=== PATIENT | female | born 2000 | race Caucasian/White ===

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

== ENCOUNTER 2019-02-14 16:33 | Emergency (ER) | payer OTHER ==
[~2019-02-14] VITALS: Ht 154.9 cm; Wt 62.7 kg
[2019-02-14 16:33] VITALS: BP 120/80
[~2019-02-14 16:33] MED LIST: LOTRCRE TOP
[2019-02-14] MEDS ORDERED: TOPA1TAB PO (16:39)
[2019-02-14] MEDS ORDERED: LIDOCAINE 1% MDV 20ML VIAL SC ONE (17:15)
[2019-02-14] MEDS ORDERED: BACT800T5 PO (17:40)
== END 2019-02-14 17:50 | disposition home or self-care (01) ==
LOC: M ED 16:33
DX: L05.01 Pilonidal cyst with abscess (principal); Z91.048 Other nonmedicinal substance allergy status

== ENCOUNTER 2019-02-16 19:08 | Emergency (ER) | payer OTHER ==
[~2019-02-16] VITALS: Ht 154.9 cm; Wt 61.4 kg
[~2019-02-16 19:08] MED LIST changes: +BACT800T5 PO; +TOPA1TAB PO
[2019-02-16 20:31] VITALS: BP 120/72
== END 2019-02-16 20:32 | disposition home or self-care (01) ==
LOC: M ED 19:08
DX: Z48.817 Encounter for surgical aftercare following surgery on the skin and subcutaneous tissue (principal); L05.01 Pilonidal cyst with abscess; Z88.3 Allergy status to other anti-infective agents; Z91.048 Other nonmedicinal substance allergy status; Z79.899 Other long term (current) drug therapy

== ENCOUNTER 2020-09-29 21:28 | Emergency (ER) | payer OTHER, SELFPAY ==
[~2020-09-29] VITALS: Ht 154.9 cm; Wt 69.0 kg
[2020-09-29] MEDS ORDERED: BACT800T5 PO (23:02)
[2020-09-29] MEDS ORDERED: BACTRIM 160MG/800MG DS TAB PO ONE (23:25)
[2020-09-29 23:32] VITALS: BP 128/85
[2020-09-30] MEDS ORDERED: ACET1TAB55 PO (19:23)
== END 2020-09-29 23:33 | disposition home or self-care (01) ==
LOC: M ED 21:28
DX: L05.01 Pilonidal cyst with abscess (principal); G43.909 Migraine, unspecified, not intractable, without status migrainosus; Z91.048 Other nonmedicinal substance allergy status; Z88.8 Allergy status to other drugs, medicaments and biological substances

== ENCOUNTER 2020-09-30 19:08 | Emergency (ER) | payer OTHER ==
[~2020-09-30] VITALS: Ht 154.9 cm; Wt 67.4 kg
[2020-09-30] MEDS ORDERED: ACET1TAB55 PO (19:23)
[2020-09-30] MEDS ORDERED: LIDOCAINE 2% W/EPINEPHRINE 20ML VIAL **PRES FREE INJ ONE (20:15)
[2020-09-30 20:38] LABS: BASO # 0.1 10^3/uL (0.0-0.2); BASO % 0.5 % (0.0-1.0); EOS % 0.3 % (0.0-3.0); HEMATOCRIT 41.4 % (36.0-47.0); HEMOGLOBIN 13.7 g/dl (12.0-15.5); LYMPH # 1.3 10^3/uL (1.5-5.0); LYMPH % 12.6 % (24.0-44.0); MEAN CORPUSCULAR HEMOGLOBIN 30.4 pg (27.0-33.0); MEAN CORPUSCULAR HGB CONC 33.1 g/dl (32.0-36.5); MONO # 1.2 10^3/uL (0.0-0.8); MONO % 11.8 % (2.0-8.0); NEUTROPHILS # 7.8 10^3/uL (1.5-8.5); NEUTROPHILS % 74.3 % (36.0-66.0); PLATELET COUNT, AUTOMATED 168 10^3/uL (150-450); WHITE BLOOD COUNT 10.5 10^3/uL (4.0-10.0)
[2020-09-30] MEDS ORDERED: BACTRIM 160MG/800MG DS TAB PO ONE (21:40)
[2020-09-30 21:44] VITALS: BP 135/76
== END 2020-09-30 21:49 | disposition home or self-care (01) ==
LOC: M ED 19:08
DX: L05.01 Pilonidal cyst with abscess (principal); G43.909 Migraine, unspecified, not intractable, without status migrainosus; Z88.8 Allergy status to other drugs, medicaments and biological substances; Z91.048 Other nonmedicinal substance allergy status

== ENCOUNTER → 2021-01-05 | Outpatient (CLI) | payer BC ==
[~2021-01-05] MED LIST changes: +ACET1TAB55 PO
[2021-01-05 13:53] LABS: BASO # 0.1 10^3/uL (0.0-0.2); BASO % 0.5 % (0.0-1.0); EOS # 0.2 10^3/uL (0.0-0.5); EOS % 2.3 % (0.0-3.0); HEMATOCRIT 40.1 % (36.0-47.0); HEMOGLOBIN 13.7 g/dl (12.0-15.5); LYMPH # 1.8 10^3/uL (1.5-5.0); LYMPH % 17.2 % (24.0-44.0); MEAN CORPUSCULAR HEMOGLOBIN 31.3 pg (27.0-33.0); MEAN CORPUSCULAR HGB CONC 34.2 g/dl (32.0-36.5); MEAN CORPUSCULAR VOLUME 91.6 fl (80.0-96.0); MONO # 0.6 10^3/uL (0.0-0.8); MONO % 6.3 % (2.0-8.0); NEUTROPHILS # 7.5 10^3/uL (1.5-8.5); NEUTROPHILS % 73.4 % (36.0-66.0); PLATELET COUNT, AUTOMATED 208 10^3/uL (150-450); RED BLOOD COUNT 4.38 10^6/uL (4.00-5.40); WHITE BLOOD COUNT 10.2 10^3/uL (4.0-10.0)
[2021-01-05 15:04] LABS: HEPATITIS C VIRUS ABY INDEX < 0.0 INDEX (<0.8); HIV 1&2 SCREEN CENTAUR NEGATIVE (NEGATIVE)
[2021-01-05 15:37] LABS: GC DNA AMPLIFICATION NEGATIVE (NEGATIVE)
== END ==
LOC: M PLALAB 10:15
PROVIDERS: ATTEND Obstetrics & Gynecology
DX: Z34.91 Encounter for supervision of normal pregnancy, unspecified, first trimester (principal)

== ENCOUNTER → 2021-02-02 | Outpatient (CLI) | payer BC | LOC: M PLAIMG 08:54 | PROVIDERS: ATTEND Specialist | DX: Z34.82 Encounter for supervision of other normal pregnancy, second trimester (principal) ==

== ENCOUNTER → 2021-03-01 | Outpatient (CLI) | payer BC ==
--- NOTE | 2021-03-01 11:15 | REP ---
INDICATION: ANATOMY. COMPARISON: None. TECHNIQUE: Real-time sonographic evaluation of the gravid uterus performed. FINDINGS: Estimated gestational age is19 weeks 5 days, EDC 07/21/2021. Today's measurements indicate appropriate growth. Presentation: Variable Placenta anterior, grade 1, without evidence of placenta previa. heart rate is recorded at 158 beats per minute. Amniotic fluid is subjectively normal. Closed cervical length is measured at 4.5 cm. Biometry chart: BPD: 47 mm, 20 weeks 1 days, 62nd percentile. HC: 178 mm, 20 weeks 2 days, 67th percentile AC: 142 mm, 19 weeks 4 days, 47th percentile Femur length: 31 mm, 19 weeks 3 days, 43rd percentile HC to AC ratio: 1.26, normal range 1.06-1.25. Estimated weight: 302g, 39th percentile. anatomy: Cranium: Grossly normal Lateral Ventricles/Choroid Plexus: Grossly normal Posterior Fossa/Cerebellum: Grossly normal Nose/lips/profile: Grossly normal Four chamber heart: Grossly normal Right ventricular outflow tract: Grossly normal Left ventricular outflow tract: Grossly normal Left-sided stomach: Grossly normal Kidneys: Grossly normal Bladder: Grossly normal Cord Insertion: Grossly normal 3 vessel cord: Grossly normal Spine: Grossly normal IMPRESSION: Viable single intrauterine gestation as above. <Electronically signed by Gerard Shore > 03/01/21 1111
== END ==
LOC: M WHC 08:03
PROVIDERS: ATTEND Specialist
DX: Z34.02 Encounter for supervision of normal first pregnancy, second trimester (principal)

== ENCOUNTER → 2021-03-30 | Outpatient (CLI) | payer BC ==
[2021-03-30 12:10] LABS: HEMATOCRIT 36.6 % (36.0-47.0); HEMOGLOBIN 11.9 g/dl (12.0-15.5); MEAN CORPUSCULAR HEMOGLOBIN 30.2 pg (27.0-33.0); MEAN CORPUSCULAR HGB CONC 32.5 g/dl (32.0-36.5); MEAN CORPUSCULAR VOLUME 92.9 fl (80.0-96.0); PLATELET COUNT, AUTOMATED 200 10^3/uL (150-450); RED BLOOD COUNT 3.94 10^6/uL (4.00-5.40); WHITE BLOOD COUNT 9.8 10^3/uL (4.0-10.0)
== END ==
LOC: M PLALAB 08:50
PROVIDERS: ATTEND Obstetrics & Gynecology
DX: Z34.02 Encounter for supervision of normal first pregnancy, second trimester (principal)

== ENCOUNTER → 2021-06-05 | Outpatient (REF) | payer BC | LOC: M WUC 20:27 | PROVIDERS: ATTEND Physician Assistant | DX: L05.01 Pilonidal cyst with abscess (principal) ==

== ENCOUNTER → 2021-06-24 | Outpatient (REF) | payer BC | LOC: M PLALAB 13:56 | PROVIDERS: ATTEND Specialist | DX: Z34.03 Encounter for supervision of normal first pregnancy, third trimester (principal); Z53.9 Procedure and treatment not carried out, unspecified reason ==

== ENCOUNTER → 2021-06-24 | Outpatient (REF) | payer BC | LOC: M SFHCWAGY 12:50 | PROVIDERS: ATTEND Specialist | DX: Z34.03 Encounter for supervision of normal first pregnancy, third trimester (principal) ==

== ENCOUNTER 2021-07-24 12:20 | Outpatient (CLI) | payer BC ==
[~2021-07-24] VITALS: Ht 157.5 cm; Wt 91.8 kg
[2021-07-24 12:53] VITALS: BP 108/72
[2021-07-24] MEDS ORDERED: PRENTAB9 PO (12:57)
[2021-07-24] MEDS ORDERED: TUMS500C PO (12:57)
[2021-07-24 14:09] VITALS: BP 109/58
== END 2021-07-24 14:18 | disposition home or self-care (01) ==
LOC: M LDO 12:20
PROVIDERS: ATTEND Obstetrics & Gynecology
DX: O36.8130 Decreased fetal movements, third trimester, not applicable or unspecified (principal); Z3A.40 40 weeks gestation of pregnancy; Z91.09 Other allergy status, other than to drugs and biological substances

== ENCOUNTER 2021-07-28 10:18 | Inpatient (IN) | payer BC ==
[2021-07-28] VITALS (9 sets, daily range): BP systolic 110–137; BP diastolic 58–80
[~2021-07-28] VITALS: Ht 157.5 cm; Wt 93.4 kg
[~2021-07-28 10:18] MED LIST changes: +PRENTAB9 PO; +TUMS500C PO
[2021-07-28] MEDS ORDERED: OXYTOCIN DRIP 30 UNITS in IV 1 EA IV PRN (10:25)
[2021-07-28] MEDS ORDERED: LIDOCAINE 1% MDV 20ML VIAL INFIL PRN (10:25)
[2021-07-28] MEDS ORDERED: METHYLERGONOVINE MALEATE 0.2 MG/ML VIAL (J2210) IM PRN (10:25)
[2021-07-28] MEDS ORDERED: TRANEXAMIC ACID INJection 1,000 MG in NS 100 ML IV PRN (10:25)
[2021-07-28] MEDS ORDERED: CARBOPROST TROMETHAMINE 250 MCG/ML AMP IM PRN (10:25)
[2021-07-28] MEDS ORDERED: HOME MED LIST COMPLETE! XX SCH (11:10)
[2021-07-28 12:15] LABS: HEMATOCRIT 31.7 % (36.0-47.0); HEMOGLOBIN 10.6 g/dl (12.0-15.5); MEAN CORPUSCULAR HEMOGLOBIN 27.7 pg (27.0-33.0); MEAN CORPUSCULAR HGB CONC 33.4 g/dl (32.0-36.5); MEAN CORPUSCULAR VOLUME 82.8 fl (80.0-96.0); PLATELET COUNT, AUTOMATED 175 10^3/uL (150-450); RED BLOOD COUNT 3.83 10^6/uL (4.00-5.40); WHITE BLOOD COUNT 10.7 10^3/uL (4.0-10.0)
[2021-07-28] MEDS: miSOPROStol 50MCG 1/2 TABLET PO SCH ×3 (13:10→21:27)
[2021-07-29] VITALS (45 sets, daily range): BP systolic 87–130; BP diastolic 50–82
[2021-07-29] MEDS ORDERED: diphenhydrAMINE 50MG/ML VIAL (J1200) IV ONE
[2021-07-29] MEDS: miSOPROStol 50MCG 1/2 TABLET PO SCH (01:30)
[2021-07-29] MEDS ORDERED: PROMETHAZINE 25MG/ML 1ML VIAL IV ONE (02:20)
[2021-07-29] MEDS ORDERED: BUTORPHANOL 2 MG/ML INJ (J0595) IV ONE (02:20)
[2021-07-29] MEDS ORDERED: OXYTOCIN DRIP 30 UNITS in IV 1 EA IV SCH (10:10)
[2021-07-29] MEDS ORDERED: FENTANYL 2MCG/ML ROPIVACAINE 0.2% IN 0.9% NACL 100ML IVBAG As Ordered ONE (12:31)
[2021-07-29] MEDS: LR 1,000 ML IV SCH ×3 (12:38→18:42)
[2021-07-29] MEDS ORDERED: EPIDURAL COMMENT XX SCH (13:25)
[2021-07-29] MEDS ORDERED: REFRIGERATOR IV KEYS XX PRN (13:25)
[2021-07-29] MEDS ORDERED: EPIDURAL/PCA KEYS XX PRN (13:25)
[2021-07-29] MEDS ORDERED: NALOXONE INJ 0.4MG/1ML VIAL (J2310 PER 1MG) IV PRN (13:25)
[2021-07-29] MEDS ORDERED: diphenhydrAMINE 50MG/ML VIAL (J1200) IV PRN (13:25)
[2021-07-29] MEDS ORDERED: LACTATED RINGER'S 1000 ML IV PRN (13:25)
[2021-07-29] MEDS ORDERED: ONDANSETRON 4MG/2ML VIAL IV PRN (13:25)
[2021-07-29] MEDS: FENTANYL/ROPIVACAINE/NACL BAG 100 ML EPIDURAL SCH ×2 (14:27→22:27)
[2021-07-29] MEDS: ePHEDrine SULFATE 25 MG/5 ML(5MG/ML) SYRINGE IV PRN ×3 (16:49→16:58)
[2021-07-30] VITALS (29 sets, daily range): BP systolic 92–140; BP diastolic 51–84
[2021-07-30] MEDS ORDERED: LIDOCAINE 2% W/EPINEPHRINE 20ML VIAL **PRES FREE ONE (06:19)
[2021-07-30] MEDS ORDERED: OXYTOCIN 30 UNITS IN 0.9% NaCl 500ML IV BAG (J2590) ONE (06:19)
[2021-07-30] MEDS ORDERED: BICITRA 30ML SOLN UDC PO ONE (06:20)
[2021-07-30] MEDS ORDERED: CARBOPROST TROMETHAMINE 250 MCG/ML AMP IM PRN (06:20)
[2021-07-30] MEDS ORDERED: AZITHROMYCIN INJ 500 MG, VIAL MATE ADAPTER 1 EACH in NS 250 ML IV ONE (06:20)
[2021-07-30] MEDS ORDERED: TRANEXAMIC ACID INJection 1,000 MG in NS 100 ML IV PRN (06:20)
[2021-07-30] MEDS ORDERED: OXYTOCIN DRIP 30 UNITS in IV 1 EA IV PRN (06:20)
[2021-07-30] MEDS ORDERED: ceFAZolin SOD 2 GM in IV 1 EA IV ONE (06:20)
[2021-07-30] MEDS ORDERED: METHYLERGONOVINE MALEATE 0.2 MG/ML VIAL (J2210) IM PRN (06:20)
[2021-07-30] MEDS ORDERED: ONDANSETRON 4MG/2ML VIAL ONE (06:59)
[2021-07-30] MEDS ORDERED: MORPHINE PRES-FREE INJ 10 MG/10 ML VIAL As Ordered ONE (07:14)
[2021-07-30 07:15] LABS: CORD GAS ABE A -8.3; CORD GAS HCO3 A 19.1 MEQ/L; CORD GAS PCO2 A 47.1 mmHg; CORD GAS PH A 7.227 UNITS; CORD GAS SBC A 16.8 MEQ/L; CORD GAS TCO2 A 20.6 MEQ/L
[2021-07-30] MEDS ORDERED: NALBUPHINE HCL 10 MG/ML AMP (J2300) IV PRN (07:15)
[2021-07-30] MEDS ORDERED: diphenhydrAMINE 50MG/ML VIAL (J1200) IV PRN (07:15)
[2021-07-30] MEDS ORDERED: ONDANSETRON 4MG/2ML VIAL IV PRN ×3 (07:15→08:30)
[2021-07-30] MEDS ORDERED: METOCLOPRAMIDE INJ 10MG/2ML VIAL (J2765 PER 1) IV PRN (07:15)
[2021-07-30] MEDS ORDERED: NALOXONE INJ 0.4MG/1ML VIAL (J2310 PER 1MG) IV PRN ×2 (07:15)
[2021-07-30 07:17] LABS: CORD GAS HCO3 V 19.2 MEQ/L; CORD GAS O2 SAT V 55.5 %; CORD GAS PCO2 V 41.5 mmHg; CORD GAS PH V 7.284 UNITS; CORD GAS SBC V 17.9 MEQ/L; CORD GAS TCO2 V 20.5 MEQ/L
[2021-07-30] MEDS ORDERED: OXYTOCIN 30 UNITS IN 0.9% NaCl 500ML IV BAG (J2590) As Ordered ONE (08:07)
[2021-07-30] MEDS: LR 1,000 ML IV SCH (08:08)
[2021-07-30] MEDS ORDERED: ACETAMINOPHEN 500 MG TAB PO PRN (08:20)
[2021-07-30] MEDS ORDERED: MEASLES,MUMPS,RUBELLA VACCINE INJ (MMR-II) (90707) SC SCH (08:20)
[2021-07-30] MEDS ORDERED: PERCOCET 5MG/325MG TAB PO PRN ×3 (08:20→08:30)
[2021-07-30] MEDS ORDERED: RHOGAM 300 MCG (1500 IU) INJ (J2790) IM SCH (08:20)
[2021-07-30] MEDS ORDERED: OXYTOCIN DRIP 30 UNITS in IV 1 EA IV SCH (08:20)
[2021-07-30] MEDS ORDERED: SIMETHICONE 80MG CHEW TAB PO PRN (08:20)
[2021-07-30] MEDS ORDERED: fentaNYL 100 MCG/2 ML INJECTION IV PRN (08:30)
[2021-07-30] MEDS ORDERED: LR 1,000 ML IV SCH (08:30)
[2021-07-30] MEDS: PRENATAL VITAMINS CHEWABLE TABLET PO SCH (09:00)
[2021-07-30] MEDS: DOCUSATE SODIUM 100MG CAPSULE PO SCH ×2 (09:00→20:55)
[2021-07-30] MEDS: KETOROLAC 30 MG/ML 1ML VIAL IV SCH ×3 (09:32→20:55)
[2021-07-31 02:00] VITALS: BP 107/60
[2021-07-31] MEDS: KETOROLAC 30 MG/ML 1ML VIAL IV SCH (02:37)
[2021-07-31 06:00] VITALS: BP 118/69
[2021-07-31 07:52] LABS: HEMATOCRIT 25.6 % (36.0-47.0); HEMOGLOBIN 8.2 g/dl (12.0-15.5); MEAN CORPUSCULAR HEMOGLOBIN 26.7 pg (27.0-33.0); MEAN CORPUSCULAR VOLUME 83.4 fl (80.0-96.0); PLATELET COUNT, AUTOMATED 140 10^3/uL (150-450); RED BLOOD COUNT 3.07 10^6/uL (4.00-5.40); WHITE BLOOD COUNT 12.3 10^3/uL (4.0-10.0)
[2021-07-31] MEDS: DOCUSATE SODIUM 100MG CAPSULE PO SCH ×2 (08:26→20:41)
[2021-07-31] MEDS: PRENATAL VITAMINS CHEWABLE TABLET PO SCH (08:26)
[2021-07-31 10:00] VITALS: BP 115/74
[2021-07-31] MEDS: IBUPROFEN 800 MG TAB PO SCH ×2 (10:54→18:48)
[2021-07-31 14:00] VITALS: BP 111/62
[2021-07-31 18:00] VITALS: BP 119/69
[2021-07-31 22:00] VITALS: BP 126/62
[2021-08-01 02:00] VITALS: BP 122/62
[2021-08-01] MEDS: IBUPROFEN 800 MG TAB PO SCH ×2 (03:35→11:07)
[2021-08-01 06:00] VITALS: BP 132/88
[2021-08-01] MEDS: DOCUSATE SODIUM 100MG CAPSULE PO SCH (08:49)
[2021-08-01] MEDS: PRENATAL VITAMINS CHEWABLE TABLET PO SCH (08:49)
[2021-08-01] MEDS ORDERED: IBUP80TA PO (11:45)
[2021-08-01] MEDS ORDERED: PERCOCET PO (11:45)
== END 2021-08-01 12:35 | disposition home or self-care (01) | DRG 540 ==
LOC: M LDI 10:18 → M OBS 07-30 09:00
PROVIDERS: ADMIT Advanced Practice Midwife; ATTEND Obstetrics & Gynecology
PROC: 3E0P7GC Introduction of Other Therapeutic Substance into Female Reproductive, Via Natural or Artificial Opening (ICD-10-PCS; 2021-07-28)
PROC: 10D00Z1 Extraction of Products of Conception, Low, Open Approach (ICD-10-PCS; principal; 2021-07-30 07:12)
DX: O48.0 Post-term pregnancy (principal); O40.3XX0 Polyhydramnios, third trimester, not applicable or unspecified; O64.0XX0 Obstructed labor due to incomplete rotation of fetal head, not applicable or unspecified; O76 Abnormality in fetal heart rate and rhythm complicating labor and delivery; Z37.0 Single live birth; Z3A.40 40 weeks gestation of pregnancy

== ENCOUNTER → 2021-11-03 | Outpatient (CLI) | payer BC ==
[~2021-11-03] MED LIST changes: +IBUP80TA PO; +PERCOCET PO
== END ==
LOC: M LABSMTC 09:59
PROVIDERS: ATTEND Anesthesiology
DX: Z01.812 Encounter for preprocedural laboratory examination (principal)

== ENCOUNTER 2021-11-05 06:03 | Day surgery (SDC) | payer BC ==
[~2021-11-05] VITALS: Ht 157.5 cm; Wt 75.0 kg
[~2021-11-05 06:03] MED LIST changes: +CelecoXIB 400 MG CAP PO ONE; +ceFAZolin SOD 2 GM in IV 1 EA IV ONE
[2021-11-05] MEDS ORDERED: LR 1,000 ML IV SCH ×2 (06:15→09:50)
[2021-11-05] MEDS ORDERED: BUPIVACAINE HCL 0.25% 30ML VIAL As Ordered ONE (07:10)
[2021-11-05] MEDS ORDERED: LIDOCAINE 1% SDV 30ML VIAL As Ordered ONE (07:10)
[2021-11-05] MEDS ORDERED: propofoL 200 MG/20 ML VIAL As Ordered ONE (07:37)
[2021-11-05] MEDS ORDERED: dexameTHASONE 4 MG/ML 1ML VIAL (J1100 PER 1MG) As Ordered ONE (07:37)
[2021-11-05] MEDS ORDERED: ONDANSETRON 4MG 2ML VIAL As Ordered ONE (07:37)
[2021-11-05] MEDS ORDERED: LIDOCAINE 2% INJ 100 MG/5 ML SYRINGE As Ordered ONE (07:37)
[2021-11-05] MEDS ORDERED: fentaNYL 100 MCG/2 ML INJECTION As Ordered ONE (07:37)
[2021-11-05] MEDS ORDERED: ROCURONIUM BROMIDE 50 MG/5 ML VIAL As Ordered ONE (07:37)
[2021-11-05] MEDS ORDERED: MIDAZOLAM INJ 2MG/2ML VIAL (J2250 PER 1MG) As Ordered ONE (07:37)
[2021-11-05] MEDS ORDERED: SUCCINYLCHOLINE 100 MG/5 ML SYRINGE (J0330) As Ordered ONE (08:52)
[2021-11-05] MEDS ORDERED: ePHEDrine SULFATE 25 MG/5 ML(5MG/ML) SYRINGE As Ordered ONE (08:52)
[2021-11-05] MEDS ORDERED: KETOROLAC 60MG 2ML VIAL As Ordered ONE (09:11)
[2021-11-05] MEDS ORDERED: SUGAMMADEX SODIUM 500 MG/5 ML VIAL (BRIDION) As Ordered ONE (09:11)
[2021-11-05] MEDS ORDERED: METOCLOPRAMIDE INJ 10MG/2ML VIAL (J2765 PER 1) As Ordered ONE (09:28)
[2021-11-05] MEDS ORDERED: ONDANSETRON 4MG 2ML VIAL IV PRN (09:50)
[2021-11-05] MEDS ORDERED: PERCOCET 5MG/325MG TAB PO PRN (09:50)
[2021-11-05] MEDS ORDERED: fentaNYL 100 MCG/2 ML INJECTION IV PRN (09:50)
[2021-11-05] MEDS ORDERED: [UNRECOGNIZED DRUG - CODE] TP (10:02)
[2021-11-05] MEDS ORDERED: NORCO, ANEXSIA 5/325MG TABLET (HYDROcodone/ACETAMINOPHEN) PO PRN ×2 (10:20)
[2021-11-05 13:00] VITALS: BP 101/55
[2021-11-05] MEDS ORDERED: KETOROLAC 30 MG/ML 1ML VIAL IV PRN (15:00)
== END 2021-11-05 13:20 | disposition home or self-care (01) ==
LOC: M SDC 06:03
PROVIDERS: ATTEND Surgery
DX: L05.91 Pilonidal cyst without abscess (principal); Z91.048 Other nonmedicinal substance allergy status; Z88.8 Allergy status to other drugs, medicaments and biological substances
CPT/HCPCS: 11770; 81025; J0330; J0690; J1100; J1885; J2250; J2405; J2765; J3010

== ENCOUNTER → 2022-07-25 | Outpatient (CLI) | payer OTHER ==
[~2022-07-25] MED LIST changes: -CelecoXIB 400 MG CAP PO ONE; +[UNRECOGNIZED DRUG - CODE] TP; -ceFAZolin SOD 2 GM in IV 1 EA IV ONE
[2022-07-25 18:46] LABS: BASO # 0.1 10^3/uL (0.0-0.2); BASO % 0.7 % (0.0-1.0); EOS # 0.3 10^3/uL (0.0-0.5); EOS % 4.2 % (0.0-3.0); HEMOGLOBIN 14.7 g/dl (12.0-15.5); LYMPH # 3.6 10^3/uL (1.5-5.0); LYMPH % 47.1 % (24.0-44.0); MEAN CORPUSCULAR HEMOGLOBIN 28.8 pg (27.0-33.0); MONO # 0.4 10^3/uL (0.0-0.8); MONO % 5.1 % (2.0-8.0); NEUTROPHILS # 3.3 10^3/uL (1.5-8.5); NEUTROPHILS % 42.6 % (36.0-66.0); PLATELET COUNT, AUTOMATED 178 10^3/uL (150-450); RED BLOOD COUNT 5.11 10^6/uL (4.00-5.40); WHITE BLOOD COUNT 7.7 10^3/uL (4.0-10.0)
[2022-07-25 19:05] LABS: GC DNA AMPLIFICATION NEGATIVE (NEGATIVE)
[2022-07-25 19:22] LABS: ALBUMIN 4.4 G/DL (3.2-5.2); ALKALINE PHOSPHATASE 80 U/L (46-116); ALT/SGPT 14 U/L (7.0-40); AST/SGOT 15 U/L (<34); BILIRUBIN,TOTAL 0.6 MG/DL (0.3-1.2); BLOOD UREA NITROGEN 9 MG/DL (9-23); CARBON DIOXIDE LEVEL 27 MMOL/L (20-31); CHLORIDE LEVEL 106 MMOL/L (98-107); GLOMERULAR FILTRATION RATE > 60.0 (>60); GLUCOSE, FASTING 75 MG/DL (60-100); SODIUM LEVEL 140 MMOL/L (136-145); TOTAL 25(OH) VITAMIN D 32.5 NG/ML (20.0-100.0)
== END ==
LOC: M PLALAB 14:48
PROVIDERS: ATTEND Registered Nurse
DX: Z00.00 Encounter for general adult medical examination without abnormal findings (principal)

== ENCOUNTER → 2023-10-17 | Outpatient (REF) | payer OTHER | LOC: M LAB REF 16:58 | PROVIDERS: ATTEND Family Medicine | DX: Z01.419 Encounter for gynecological examination (general) (routine) without abnormal findings (principal); Z11.8 Encounter for screening for other infectious and parasitic diseases ==

== ENCOUNTER → 2024-01-25 | Outpatient (CLI) | payer OTHER ==
[2024-01-25 18:06] LABS: BASO # 0.1 10^3/uL (0.0-0.2); BASO % 1.1 % (0.0-1.0); EOS # 0.5 10^3/uL (0.0-0.5); EOS % 6.9 % (0.0-3.0); LYMPH # 2.6 10^3/uL (1.5-5.0); LYMPH % 40.4 % (24.0-44.0); MEAN CORPUSCULAR HEMOGLOBIN 30.7 pg (27.0-33.0); MEAN CORPUSCULAR HGB CONC 33.3 g/dl (32.0-36.5); MEAN CORPUSCULAR VOLUME 92.1 fl (80.0-96.0); MONO # 0.5 10^3/uL (0.0-0.8); MONO % 7.1 % (2.0-8.0); NEUTROPHILS # 2.9 10^3/uL (1.5-8.5); NEUTROPHILS % 44.3 % (36.0-66.0); PLATELET COUNT, AUTOMATED 195 10^3/uL (150-450); RED BLOOD COUNT 4.56 10^6/uL (4.00-5.40); WHITE BLOOD COUNT 6.5 10^3/uL (4.0-10.0)
== END ==
LOC: M PLALAB 15:24
PROVIDERS: ATTEND Nurse Practitioner Family
DX: N91.1 Secondary amenorrhea (principal)

== ENCOUNTER → 2024-04-11 | Outpatient (CLI) | payer OTHER ==
[2024-04-11 09:59] LABS: HEMATOCRIT 38.4 % (36.0-47.0); HEMOGLOBIN 12.9 g/dl (12.0-15.5); MEAN CORPUSCULAR HEMOGLOBIN 30.3 pg (27.0-33.0); MEAN CORPUSCULAR HGB CONC 33.6 g/dl (32.0-36.5); MEAN CORPUSCULAR VOLUME 90.1 fl (80.0-96.0); PLATELET COUNT, AUTOMATED 229 10^3/uL (150-450); RED BLOOD COUNT 4.26 10^6/uL (4.00-5.40); WHITE BLOOD COUNT 6.6 10^3/uL (4.0-10.0)
[2024-04-11 10:45] LABS: HIV 1&2 SCREEN NEGATIVE (NEGATIVE)
[2024-04-11 10:53] LABS: HEPATITIS C VIRUS ABY INDEX 0.07 INDEX (<0.8)
[2024-04-11 11:17] LABS: GC DNA AMPLIFICATION NEGATIVE (NEGATIVE)
== END ==
LOC: M PLALAB 08:21
PROVIDERS: ATTEND Nurse Practitioner Family
DX: Z34.81 Encounter for supervision of other normal pregnancy, first trimester (principal)

== ENCOUNTER → 2024-06-17 | Outpatient (CLI) | payer OTHER | LOC: M WHC 07:05 | PROVIDERS: ATTEND Nurse Practitioner Family | DX: Z34.80 Encounter for supervision of other normal pregnancy, unspecified trimester (principal) ==

== ENCOUNTER → 2024-07-16 | Outpatient (CLI) | payer OTHER | LOC: M WHC 14:32 | PROVIDERS: ATTEND Nurse Practitioner Family | DX: Z34.80 Encounter for supervision of other normal pregnancy, unspecified trimester (principal) ==

== ENCOUNTER → 2024-08-01 | Outpatient (CLI) | payer OTHER ==
[2024-08-01 13:43] LABS: HEMATOCRIT 38.4 % (36.0-47.0); HEMOGLOBIN 12.7 g/dl (12.0-15.5); MEAN CORPUSCULAR HEMOGLOBIN 30.1 pg (27.0-33.0); MEAN CORPUSCULAR HGB CONC 33.1 g/dl (32.0-36.5); PLATELET COUNT, AUTOMATED 189 10^3/uL (150-450); RED BLOOD COUNT 4.22 10^6/uL (4.00-5.40); WHITE BLOOD COUNT 10.1 10^3/uL (4.0-10.0)
[2024-08-01 13:46] LABS: GLUCOSE CHALLENGE TEST 1 HOUR 92 MG/DL (LESS THAN 140)
[2024-08-01 14:21] LABS: HIV 1&2 SCREEN NEGATIVE (NEGATIVE)
[2024-08-01 14:29] LABS: HEPATITIS C VIRUS ABY INDEX 0.03 INDEX (<0.8)
[2024-08-01 14:49] LABS: Trichomonas vaginalis (AMP) NOT DETECTED (NEGATIVE)
[2024-08-01 15:13] LABS: GC DNA AMPLIFICATION NEGATIVE (NEGATIVE)
== END ==
LOC: M PLALAB 08:20
PROVIDERS: ATTEND Advanced Practice Midwife
DX: Z34.82 Encounter for supervision of other normal pregnancy, second trimester (principal)

== ENCOUNTER 2024-11-02 07:59 | Inpatient (IN) | payer OTHER ==
[2024-11-02] VITALS (23 sets, daily range): BP systolic 91–115; BP diastolic 54–78
[~2024-11-02] VITALS: Ht 157.5 cm; Wt 89.2 kg
[2024-11-02] MEDS ORDERED: METHYLERGONOVINE MALEATE 0.2 MG/ML 1 ML VIAL IM PRN (08:15)
[2024-11-02] MEDS ORDERED: OXYTOCIN DRIP 30 UNITS in IV 1 EA IV PRN (08:15)
[2024-11-02] MEDS ORDERED: CARBOPROST TROMETHAMINE 250 MCG/ML AMP IM PRN (08:15)
[2024-11-02] MEDS ORDERED: LIDOCAINE 1% MDV 20 ML VIAL INFIL PRN (08:15)
[2024-11-02] MEDS ORDERED: TRANEXAMIC ACID INJection 1,000 MG in NS 100 ML IV PRN (08:15)
[2024-11-02] MEDS ORDERED: TUMS500C PO (08:26)
[2024-11-02] MEDS ORDERED: HOME MED LIST COMPLETE! XX SCH (08:30)
[2024-11-02 09:47] LABS: PLATELET COUNT, AUTOMATED 155 10^3/uL (150-450)
[2024-11-02] MEDS: LR 1,000 ML IV SCH (09:47)
[2024-11-02 10:44] LABS: HIV 1&2 SCREEN NEGATIVE (NEGATIVE)
[2024-11-02 10:53] LABS: HEPATITIS C VIRUS ABY INDEX 0.03 INDEX (<0.8)
[2024-11-02] MEDS: OXYTOCIN DRIP 30 UNITS in IV 1 EA IV SCH (11:08)
[2024-11-02] MEDS: PROMETHAZINE 25MG/ML 1ML VIAL IV PRN (22:28)
[2024-11-02] MEDS: BUTORPHANOL 2 MG/ML 1 ML VIAL IV PRN (22:29)
[2024-11-03] VITALS (52 sets, daily range): BP systolic 82–140; BP diastolic 44–89; TEMP 98.7; O2SAT 93–100
[2024-11-03] MEDS ORDERED: EPIDURAL/PCA KEYS XX PRN (03:50)
[2024-11-03] MEDS ORDERED: LR 500 ML IV PRN (03:50)
[2024-11-03] MEDS ORDERED: NALOXONE INJ 0.4MG/1ML VIAL IV PRN ×3 (03:50→14:45)
[2024-11-03] MEDS ORDERED: diphenhydrAMINE 50 MG/ML VIAL IV PRN ×2 (03:50→14:45)
[2024-11-03] MEDS: FENTANYL/ROPIVACAINE/NACL BAG 100 ML EPIDURAL SCH (04:19)
[2024-11-03] MEDS: LACTATED RINGER'S 1000 ML IV STA (04:20)
[2024-11-03] MEDS: ONDANSETRON 4MG 2ML VIAL IV PRN (04:56)
[2024-11-03] MEDS: ACETAMINOPHEN 500 MG TAB PO ONE (11:15)
[2024-11-03] MEDS: AMPICILLIN SOD/SULBACTAM SOD 3 GM in DEXTROSE 5% (D5W) MINI-BAG PLU 100 ML IV SCH (13:20)
[2024-11-03] MEDS ORDERED: dexAMETHasone 4 MG/ML 1 ML VIAL As Ordered ONE (14:39)
[2024-11-03] MEDS ORDERED: ONDANSETRON 4MG 2ML VIAL As Ordered ONE (14:39)
[2024-11-03] MEDS ORDERED: LIDOCAINE 2% W/EPINEPHrine 20 ML VIAL **PRES FREE As Ordered ONE (14:41)
[2024-11-03] MEDS ORDERED: MORPHINE PRES-FREE INJ 10 MG/10 ML VIAL As Ordered ONE (14:43)
[2024-11-03] MEDS ORDERED: **NOTE PATIENT COMMENT** MISC XX SCH (14:45)
[2024-11-03] MEDS: AZITHROMYCIN INJ 500 MG, VIAL MATE ADAPTER 1 EACH in NS 250 ML IV ONE (14:54)
[2024-11-03] MEDS: BICITRA 30 ML SOLN UDC PO ONE (14:54)
[2024-11-03] MEDS: ceFAZolin SODIUM 2 GM in DEXTROSE 5% (D5W) ADV/MINI-BAG 50 ML IV ONE (14:54)
[2024-11-03] MEDS ORDERED: PHENYLephrine 500MCG 5ML (100MCG/ML) SYRINGE As Ordered ONE (15:15)
[2024-11-03] MEDS ORDERED: OXYTOCIN INJ 10UNITS/ML 1ML VIAL As Ordered ONE (15:20)
[2024-11-03] MEDS ORDERED: KETOROLAC 30 MG/ML 1 ML VIAL As Ordered ONE (15:26)
[2024-11-03 15:51] LABS: CORD GAS ABE A -6.8; CORD GAS HCO3 A 20.3 MMOL/L; CORD GAS O2 SAT A 55.9 %; CORD GAS PCO2 A 47.1 mmHg; CORD GAS PH A 7.253 UNITS; CORD GAS PO2 A 25.4 mmHg; CORD GAS SBC A 18.1 MMOL/L; CORD GAS TCO2 A 21.8 MMOL/L
[2024-11-03] MEDS ORDERED: TRANEXAMIC ACID 100 MG/ML 10ML VIAL As Ordered ONE (16:09)
[2024-11-03] MEDS ORDERED: OXYTOCIN 30UNITS IN 0.9% NaCl 500ML IV BAG As Ordered ONE (17:41)
[2024-11-03] MEDS ORDERED: RHOGAM 300MCG (1500IU) INJ IM SCH (18:15)
[2024-11-03] MEDS ORDERED: ONDANSETRON 4MG 2ML VIAL IV PRN ×2 (18:15)
[2024-11-03] MEDS ORDERED: CALCIUM CARBONATE 500 MG CHEW U/D PO PRN (18:15)
[2024-11-03] MEDS ORDERED: ANUSOL HC CREAM 30 GM TOP PRN (18:15)
[2024-11-03] MEDS ORDERED: MORPHINE 4 MG/ML 1 ML VIAL IV PRN (18:15)
[2024-11-03] MEDS ORDERED: PERCOCET 5MG/325MG TAB PO PRN (18:15)
[2024-11-03] MEDS: OXYTOCIN DRIP 30 UNITS in IV 1 EA IV SCH (18:28)
[2024-11-03] MEDS ORDERED: COLA100C5 PO (18:33)
[2024-11-03] MEDS ORDERED: PERCOCET PO (18:33)
[2024-11-03] MEDS ORDERED: IBUP80TA PO (18:33)
[2024-11-03] MEDS: SLF 3 ML SYR IV SCH (19:37)
[2024-11-03] MEDS: KETOROLAC 30 MG/ML 1 ML VIAL IV SCH (21:47)
[2024-11-03] MEDS: DOCUSATE SODIUM 100 MG CAPSULE PO SCH (21:47)
[2024-11-04 02:17] VITALS: BP 119/59; O2SAT 96
[2024-11-04 06:14] VITALS: BP 108/58; O2SAT 94
[2024-11-04 06:57] LABS: PLATELET COUNT, AUTOMATED 146 10^3/uL (150-450)
[2024-11-04] MEDS: PRENATAL VITAMINS CHEWABLE TABLET PO SCH (09:01)
[2024-11-04] MEDS: FERROUS SULFATE 325 MG TAB PO SCH (09:01)
[2024-11-04 10:00] VITALS: BP 118/63; O2SAT 97
[2024-11-04] MEDS: SIMETHICONE 80MG CHEW TAB PO PRN (13:07)
[2024-11-04 14:20] VITALS: BP 108/59; O2SAT 100
[2024-11-04 17:40] VITALS: BP 123/69; O2SAT 100
[2024-11-04] MEDS: IBUPROFEN 800 MG TAB PO SCH (17:58)
[2024-11-04 22:10] VITALS: BP 94/56; O2SAT 97
[2024-11-04] MEDS: PERCOCET 5MG/325MG TAB PO PRN (23:51)
[2024-11-05 02:10] VITALS: BP 97/52; O2SAT 96
[2024-11-05 06:09] VITALS: BP 107/64; O2SAT 98
[2024-11-05] MEDS ORDERED: MEASLES,MUMPS,RUBELLA VACCINE INJ (MMR-II) SC.IMMUN ONE (09:00)
[2024-11-05 10:00] VITALS: BP 101/58; O2SAT 98
== END 2024-11-05 18:10 | disposition home or self-care (01) | DRG 786 ==
LOC: M LDI 07:59 → M OBS 11-03 19:03
PROVIDERS: ADMIT Obstetrics & Gynecology; ATTEND Obstetrics & Gynecology
PROC: 3E033VJ Introduction of Other Hormone into Peripheral Vein, Percutaneous Approach (ICD-10-PCS; 2024-11-02)
PROC: 10D00Z1 Extraction of Products of Conception, Low, Open Approach (ICD-10-PCS; principal; 2024-11-03 14:38)
DX: O34.211 Maternal care for low transverse scar from previous cesarean delivery (principal); O41.1230 Chorioamnionitis, third trimester, not applicable or unspecified; Z37.0 Single live birth; Z3A.40 40 weeks gestation of pregnancy; O76 Abnormality in fetal heart rate and rhythm complicating labor and delivery; O32.4XX0 Maternal care for high head at term, not applicable or unspecified; O66.41 Failed attempted vaginal birth after previous cesarean delivery

== ENCOUNTER 2024-11-07 14:48 | Emergency (ER) | payer OTHER ==
[~2024-11-07] VITALS: Ht 157.5 cm; Wt 89.1 kg
[~2024-11-07 14:48] MED LIST changes: +COLA100C5 PO
[2024-11-07 15:51] LABS: BASO # 0.1 10^3/uL (0.0-0.2); BASO % 0.7 % (0.0-1.0); EOS # 0.3 10^3/uL (0.0-0.5); EOS % 5.1 % (0.0-3.0); LYMPH # 1.9 10^3/uL (1.5-5.0); LYMPH % 29.1 % (24.0-44.0); MONO # 0.4 10^3/uL (0.0-0.8); MONO % 6.1 % (2.0-8.0); NEUTROPHILS # 3.9 10^3/uL (1.5-8.5); NEUTROPHILS % 58.0 % (36.0-66.0); PLATELET COUNT, AUTOMATED 217 10^3/uL (150-450)
[2024-11-07 16:05] LABS: INR 0.82
[2024-11-07 16:14] LABS: ALT/SGPT 82 U/L (7.0-40); AST/SGOT 67 U/L (<34); CALCIUM LEVEL 8.0 MG/DL (8.5-10.1); CARBON DIOXIDE LEVEL 24 MMOL/L (20-31); CHLORIDE LEVEL 111 MMOL/L (98-107); CREATININE FOR GFR 0.51 MG/DL (0.55-1.30); GLOMERULAR FILTRATION RATE > 90.0 (>60); POTASSIUM SERUM 4.6 MMOL/L (3.5-5.1); SODIUM LEVEL 144 MMOL/L (136-145)
[2024-11-07 16:53] LABS: CK-MB VALUE MASS 3.9 NG/ML (<3.6)
[2024-11-07 17:00] LABS: CPK CREATINE PHOSPHOKINASE 278 U/L (34-145); MB/CK RELATIVE INDEX 1.40 (< OR =4)
[2024-11-07] MEDS ORDERED: ISOVUE-370 76% 100 ML VIAL As Ordered ONE (17:09)
[2024-11-07 19:25] LABS: KETONE, URINE AUTO RFX NEGATIVE (NEGATIVE); MUCUS, URINE RFX SMALL (NEGATIVE); NITRITE, URINE AUTO RFX NEGATIVE (NEGATIVE); RBC, URINE AUTO RFX 54 /HPF (0-3); SQUAM EPITHELIAL CELL UR AURFX 1 /HPF (0-6); WBC, URINE AUTO RFX 8 /HPF (0-3)
[2024-11-07 19:27] LABS: LEUKOCYTE ESTERASE UR AUTO RFX TRACE (NEGATIVE)
[2024-11-08 01:53] VITALS: BP 117/79; TEMP 98.4; O2SAT 98
== END 2024-11-08 02:08 | disposition home or self-care (01) ==
LOC: M ED 14:48
DX: R06.02 Shortness of breath (principal); I36.1 Nonrheumatic tricuspid (valve) insufficiency; R00.1 Bradycardia, unspecified; Z88.8 Allergy status to other drugs, medicaments and biological substances; Z79.1 Long term (current) use of non-steroidal anti-inflammatories (NSAID); Z79.899 Other long term (current) drug therapy; Z79.810 Long term (current) use of selective estrogen receptor modulators (SERMs)
CPT/HCPCS: 36415; 71045; 71275; 76705; 80048; 80076; 81001; 82550; 82553; 83880; 84484; 85025; 85610; 85730; 87088; 87186; 93005; 93041; 93306; 93970; 94760; 99285; Q9967